=== PATIENT | female | born 1935 | race Caucasian/White ===

== ENCOUNTER 2020-03-25 16:19 | Inpatient (IN) | payer MEDICARE ==
[2020-03-25] MEDS ORDERED: Metoclopramide 10 MG/2 ML SDV IVPUSH ONE (16:32)
[2020-03-25] MEDS ORDERED: Sodium Chloride 0.9% 1,000 ML IV SCH (16:45)
[2020-03-25] MEDS ORDERED: Metoclopramide 10 MG/2 ML SDV ONE (16:55)
[2020-03-25] MEDS: Sodium Chloride 0.9% 10 ML Syringe FLUSH PRN (16:57)
[2020-03-25] MEDS ORDERED: HYDROmorphone 0.5 MG/0.5 ML Syringe IVPUSH ONE ×2 (17:08→21:14)
--- NOTE | 2020-03-25 17:26 | EDM.PDOC ---
ED HPI GENERAL MEDICAL PROBLEM - General Chief Complaint: Gastrointestinal Problem Stated Complaint: [facility] Time Seen by Provider: 03/25/20 16:27 Source of Information: Reports: Patient, EMS History Limitations: Reports: No Limitations - History of Present Illness INITIAL COMMENTS - FREE TEXT/NARRATIVE: The patient presents by [facility] for nausea, vomiting and upper abdominal pain. This started just prior to waking up. She also has a slight headache. She recently had a stroke that left her with weakness to the left arm and leg. She has no fever, chills, cough, congestion, runny nose, chest pain, shortness of breath, dysuria or diarrhea. Onset: Sudden Duration: Minutes: Location: Reports: Abdomen Quality: Reports: Sharp Severity: Moderate Improves with: Reports: None Worsens with: Reports: None Associated Symptoms: Reports: Headaches, Nausea/Vomiting. Denies: Chest Pain, Cough, Fever/Chills, Shortness of Breath Abdomen Pain Score (Numeric/FACES): 6 - Related Data Allergies Allergy/AdvReac Type Severity Reaction Status Date / Time No Known Allergies Allergy Verified 03/25/20 16:54 Home Meds: Home Meds Brimonidine Tartrate [Brimonidine Tartrate 0.2% Ophth Soln] 1 drop EYEBOTH DAILY 03/25/20 [History] Clopidogrel [Plavix] 75 mg PO DAILY 03/25/20 [History] Dorzolamide HCl/Pf [Dorzolamide 2% Eye Drop] 1 drop EYEBOTH BID 03/25/20 [History] Latanoprost/Pf [Latanoprost 0.005% Eye Drop] 1 drop EYEBOTH DAILY 03/25/20 [History] Lidocaine 5% [Lidoderm 5%] 1 patch TOP DAILY 03/25/20 [History] Ondansetron [Zofran ODT] 4 mg PO QID PRN 03/25/20 [History] QUEtiapine [SEROquel] 100 mg PO BID 03/25/20 [History] atorvaSTATin [Lipitor] 40 mg PO BEDTIME 03/25/20 [History] Past Medical History Neurological History: Reports: CVA Psychiatric History: Reports: None - Infectious Disease History Infectious Disease History: Reports: Novel Coronavirus - Past Surgical History HEENT Surgical History: Reports: Cataract Surgery Social & Family History - Tobacco Use Tobacco Use Status *Q: Former Tobacco User Used Tobacco, but Quit: Yes Month/Year Tobacco Last Used: 30 ED ROS GENERAL - Review of Systems Review Of Systems: See Below Constitutional: Reports: No Symptoms HEENT: Reports: No Symptoms Respiratory: Reports: No Symptoms Cardiovascular: Reports: No Symptoms Endocrine: Reports: No Symptoms GI/Abdominal: Reports: Abdominal Pain, Nausea, Vomiting. Denies: Diarrhea : Reports: No Symptoms Musculoskeletal: Reports: No Symptoms Skin: Reports: No Symptoms Neurological: Reports: Headache, Weakness (left side) ED EXAM, GI/ABD - Physical Exam Exam: See Below Exam Limited By: No Limitations General Appearance: Alert, No Apparent Distress Ears: Normal External Exam Nose: Normal Inspection Head: Atraumatic, Normocephalic Neck: Normal Inspection Respiratory/Chest: No Respiratory Distress, Lungs Clear, Normal Breath Sounds Cardiovascular: Regular Rate, Rhythm, No Edema, No Murmur GI/Abdominal Exam: Soft, No Organomegaly, No Mass, Tender (Moderate tenderness to the upper abdomen) Back Exam: Normal Inspection Extremities: Normal Inspection #1 Interpretation EKG Date: 03/25/20 Time: 16:38 Rhythm: Other (sinus tachycardia) Rate (Beats/Min): 102 [place]: LAD-Left [place] Deviation P-Wave: Present QRS: Normal ST-T: Normal QT: Normal EKG Interpretation Comments: PVC Course - Vital Signs Last Recorded V/S: Last Vital Signs Temp 97.8 F 03/25/20 16:28 Pulse 114 H 03/25/20 16:28 Resp 16 03/25/20 16:28 BP 137/82 03/25/20 16:28 Pulse Ox 95 03/25/20 16:28 - Orders/Labs/Meds Orders: Active Orders 24 hr Category Date Time Status Cardiac Monitoring [RC] . DIRECTED Care 03/25/20 16:32 Active EKG Documentation Completion [RC] STAT Care 03/25/20 16:33 Active Gastrointestinal Tube Mgmt [RC] ASDIRECTED Care 03/25/20 18:26 Active Oxygen Therapy [RC] PRN Care 03/25/20 16:32 Active Peripheral IV Care [RC] . DIRECTED Care 03/25/20 16:33 Active Abdomen 1V Upright [CR] Stat Exams 03/25/20 18:26 Ordered Abdomen Pelvis w Cont [CT] Stat Exams 03/25/20 16:34 Taken Chest 1V Frontal [CR] Stat Exams 03/25/20 16:33 Taken Chest 1V Frontal [CR] Stat Exams 03/25/20 18:26 Ordered Head wo Cont [CT] Stat Exams 03/25/20 16:34 Taken CULTURE URINE [RM] Stat Lab 03/25/20 17:00 Received Sodium Chloride 0.9% [Normal Saline] 1,000 ml Med 03/25/20 16:45 Active IV ASDIRECTED Sodium Chloride 0.9% [Saline Flush] Med 03/25/20 16:32 Active 10 ml FLUSH ASDIRECTED PRN Sodium Chloride 0.9% [Saline Flush] Med 03/25/20 18:15 Active 10 ml FLUSH BOLUS ED Antiemetic Medication Reflex [OM.PC] Stat Oth 03/25/20 16:33 Ordered NG [Nasogastric Orogastric Tube Insertion] [OM.PC] Oth 03/25/20 18:26 Ordered Routine Peripheral IV Insertion Adult [OM.PC] Stat Oth 03/25/20 16:32 Ordered Medication Orders Sodium Chloride (Normal Saline) 1,000 mls @ 125 mls/hr IV ASDIRECTED [facility] Last Admin: 03/25/20 16:57 Dose: 125 mls/hr Documented by: BHASKAR Sodium Chloride (Saline Flush) 10 ml FLUSH ASDIRECTED PRN PRN Reason: Keep Vein Open Last Admin: 03/25/20 16:57 Dose: 10 ml Documented by: BHASKAR Sodium Chloride (Saline Flush) 10 ml FLUSH BOLUS [facility] Last Admin: 03/25/20 18:09 Dose: 10 ml Documented by: SHRADDHA Labs: Laboratory Tests 03/25/20 03/25/20 03/25/20 Range/Units 16:30 16:30 17:02 WBC 18.47 H (3.98-10.04) K/mm3 RBC 4.52 (3.98-5.22) M/mm3 Hgb 13.1 (11.2-15.7) gm/dl Hct 41.6 (34.1-44.9) % MCV 92.0 (79.4-94.8) fl MCH 29.0 (25.6-32.2) pg MCHC 31.5 L (32.2-35.5) g/dl RDW Std Deviation 46.2 (36.4-46.3) fL Plt Count 320 (182-369) K/mm3 MPV 10.1 (9.4-12.3) fl Neut % (Auto) 87.6 H (34.0-71.1) % Lymph % (Auto) 7.2 L (19.3-51.7) % [place] % (Auto) 4.2 L (4.7-12.5) % Eos % (Auto) 0.7 (0.7-5.8) Baso % (Auto) 0.1 (0.1-1.2) % Neut # (Auto) 16.17 H (1.56-6.13) K/mm3 Lymph # (Auto) 1.33 (1.18-3.74) K/mm3 [place] # (Auto) 0.78 H (0.24-0.36) K/mm3 Eos # (Auto) 0.13 (0.04-0.36) K/mm3 Baso # (Auto) 0.02 (0.01-0.08) K/mm3 Manual Slide Review Abnormal smear Sodium 141 (136-145) mEq/L Potassium 3.9 (3.5-5.1) mEq/L Chloride 106 (98-107) mEq/L Carbon Dioxide 24 (21-32) mEq/L Anion Gap 14.9 (5-15) BUN 19 H (7-18) mg/dL Creatinine 0.8 (0.55-1.02) mg/dL Est Cr Clr Drug Dosing 46.59 mL/min Estimated GFR (MDRD) > 60 (>60) mL/min BUN/Creatinine Ratio 23.8 H (14-18) Glucose 151 H (83-115) mg/dL Calcium 9.6 (8.5-10.1) mg/dL Total Bilirubin 0.4 (0.2-1.0) mg/dL AST 21 (15-37) U/L ALT 23 (14-59) U/L Alkaline Phosphatase 95 (46-116) U/L Troponin I < 0.017 (0.00-0.056) ng/mL C-Reactive Protein 0.5 (<1.0) mg/dL Total Protein 6.9 (6.4-8.2) g/dl Albumin 3.3 L (3.4-5.0) g/dl Globulin 3.6 gm/dL Albumin/Globulin Ratio 0.9 L (1-2) Urine Color Dark yellow (Yellow) Urine Appearance Clear (Clear) Urine pH 6.5 (5.0-8.0) Ur Specific [place] 1.025 (1.005-1.030) Urine Protein Trace H (Negative) Urine Glucose (UA) Negative (Negative) Urine Ketones Trace H (Negative) Urine Occult Blood Negative (Negative) Urine Nitrite Positive H (Negative) Urine Bilirubin 1+ H (Negative) Urine Urobilinogen 1.0 (0.2-1.0) Ur Leukocyte Esterase Negative (Negative) Urine RBC 0-5 (0-5) /hpf Urine WBC 10-20 H (0-5) /hpf Ur Squamous Epith Cells 0-5 (0-5) /hpf Urine Bacteria Moderate H (FEW) /hpf Urine Mucus Few (FEW) /hpf SARS-CoV-2 RNA (ANGEL) (NEGATIVE) 03/25/20 Range/Units 17:19 WBC (3.98-10.04) K/mm3 RBC (3.98-5.22) M/mm3 Hgb (11.2-15.7) gm/dl Hct (34.1-44.9) % MCV (79.4-94.8) fl MCH (25.6-32.2) pg MCHC (32.2-35.5) g/dl RDW Std Deviation (36.4-46.3) fL Plt Count (182-369) K/mm3 MPV (9.4-12.3) fl Neut % (Auto) (34.0-71.1) % Lymph % (Auto) (19.3-51.7) % [place] % (Auto) (4.7-12.5) % Eos % (Auto) (0.7-5.8) Baso % (Auto) (0.1-1.2) % Neut # (Auto) (1.56-6.13) K/mm3 Lymph # (Auto) (1.18-3.74) K/mm3 [place] # (Auto) (0.24-0.36) K/mm3 Eos # (Auto) (0.04-0.36) K/mm3 Baso # (Auto) (0.01-0.08) K/mm3 Manual Slide Review Sodium (136-145) mEq/L Potassium (3.5-5.1) mEq/L Chloride (98-107) mEq/L Carbon Dioxide (21-32) mEq/L Anion Gap (5-15) BUN (7-18) mg/dL Creatinine (0.55-1.02) mg/dL Est Cr Clr Drug Dosing mL/min Estimated GFR (MDRD) (>60) mL/min BUN/Creatinine Ratio (14-18) Glucose (83-115) mg/dL Calcium (8.5-10.1) mg/dL Total Bilirubin (0.2-1.0) mg/dL AST (15-37) U/L ALT (14-59) U/L Alkaline Phosphatase (46-116) U/L Troponin I (0.00-0.056) ng/mL C-Reactive Protein (<1.0) mg/dL Total Protein (6.4-8.2) g/dl Albumin (3.4-5.0) g/dl Globulin gm/dL Albumin/Globulin Ratio (1-2) Urine Color (Yellow) Urine Appearance (Clear) Urine pH (5.0-8.0) Ur Specific [place] (1.005-1.030) Urine Protein (Negative) Urine Glucose (UA) (Negative) Urine Ketones (Negative) Urine Occult Blood (Negative) Urine Nitrite (Negative) Urine Bilirubin (Negative) Urine Urobilinogen (0.2-1.0) Ur Leukocyte Esterase (Negative) Urine RBC (0-5) /hpf Urine WBC (0-5) /hpf Ur Squamous Epith Cells (0-5) /hpf Urine Bacteria (FEW) /hpf Urine Mucus (FEW) /hpf SARS-CoV-2 RNA (ANGEL) Negative (NEGATIVE) Meds: Medications Generic Name Dose Route Start Last Admin Trade Name Freq PRN Reason Stop Dose Admin Sodium Chloride 1,000 mls @ 125 mls/hr 03/25/20 16:45 03/25/20 16:57 Normal Saline IV 125 mls/hr ASDIRECTED СЕРГЕЙ Administration Sodium Chloride 10 ml 03/25/20 16:32 03/25/20 16:57 Saline Flush FLUSH 10 ml ASDIRECTED PRN Administration Keep Vein Open Sodium Chloride 10 ml 03/25/20 18:15 03/25/20 18:09 Saline Flush FLUSH 10 ml BOLUS СЕРГЕЙ Administration Discontinued Medications Generic Name Dose Route Start Last Admin Trade Name New PRN Reason Stop Dose Admin Hydromorphone HCl 0.5 mg 03/25/20 17:08 03/25/20 17:14 Dilaudid IVPUSH 03/25/20 17:09 0.5 mg ONETIME ONE Administration Ceftriaxone Sodium 1 gm/ 100 mls @ 200 mls/hr 03/25/20 17:50 03/25/20 18:12 Sodium Chloride IV 03/25/20 18:19 200 mls/hr ONETIME ONE Administration Iopamidol 100 ml 03/25/20 18:07 03/25/20 18:08 Isovue-300 (61%) IVPUSH 03/25/20 18:08 100 ml ONETIME ONE Administration Lorazepam 0.5 mg 03/25/20 18:44 03/25/20 18:51 Ativan IVPUSH 03/25/20 18:45 0.5 mg ONETIME ONE Administration Metoclopramide HCl 10 mg 03/25/20 16:32 03/25/20 16:57 Reglan IVPUSH 03/25/20 16:33 10 mg ONETIME ONE Administration Metoclopramide HCl Confirm 03/25/20 16:55 03/25/20 16:57 Reglan Administered 03/25/20 16:56 Not Given Dose 10 mg .ROUTE .STK-MED ONE Ondansetron HCl 4 mg 03/25/20 17:39 03/25/20 18:11 Zofran IVPUSH 03/25/20 17:40 4 mg ONETIME ONE Administration - Re-Assessments/Exams Free Text/Narrative Re-Assessment/Exam: 03/25/20 17:26 I ordered an IV NS at 125mL/hr, reglan 10mg IV, dilaudid 0.5mg IV, EKG, CT of her head, CT of her abdomen and pelvis, UA and labs. Her EKG shows a sinus tachycardia with no acute changes. 03/25/20 18:27 Her WBC was elevated at 18.47. Her CMP looks good. Her UA shows a UTI. I have ordered a urine culture and rocephin 1 gram IV. I am waiting for the CT scan results. 03/25/20 18:[address] scan of her head shows nothing acute. 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 03/25/20 18:49 She was vomiting again so I ordered zofran 4mg IV. The CT looked like a bowel obstruction to me and with her vomiting I ordered an NG tube. Her CT came back and showing mild bowel wall thickening in the transverse colon with mild pericolonic inflammatory changes may represent colitis in the appropriate setting. 03/25/20 18:59 She does not have a bowel obstruction. I feel she needs to be admitted. I called Dr Howell and he agreed to the admission. Departure - Departure Time of Disposition: 19:00 Disposition: Admitted As Inpatient 68 Condition: Fair Clinical Impression: Colitis UTI (urinary tract infection) Qualifiers: Urinary tract infection type: site unspecified Hematuria presence: without hematuria Qualified Code(s): N39.0 - Urinary tract infection, site not specified Nausea & vomiting Qualifiers: Vomiting type: unspecified Vomiting Intractability: intractable Qualified Code(s): R11.2 - Nausea with vomiting, unspecified - Discharge Information Referrals: PCP,None [Primary Care Provider] - Forms: ED Department Discharge Sepsis Event Note (ED) - Evaluation Sepsis Screening Result: No Definite Risk - Focused Exam Vital Signs: Vital Signs Temp Pulse Resp BP Pulse Ox 03/25/20 16:28 97.8 F 114 H 16 137/82 95 - My Orders Last 24 Hours: My Active Orders 03/25/20 16:32 Cardiac Monitoring [RC] . DIRECTED Oxygen Therapy [RC] PRN Sodium Chloride 0.9% [Saline Flush] 10 ml FLUSH ASDIRECTED PRN Peripheral IV Insertion Adult [OM.PC] Stat 03/25/20 16:33 EKG Documentation Completion [RC] STAT Peripheral IV Care [RC] . DIRECTED Chest 1V Frontal [CR] Stat ED Antiemetic Medication Reflex [OM.PC] Stat 03/25/20 16:34 Abdomen Pelvis w Cont [CT] Stat Head wo Cont [CT] Stat 03/25/20 16:45 Sodium Chloride 0.9% [Normal Saline] 1,000 ml IV ASDIRECTED 03/25/20 17:00 CULTURE URINE [RM] Stat 03/25/20 18:15 Sodium Chloride 0.9% [Saline Flush] 10 ml FLUSH BOLUS 03/25/20 18:26 Gastrointestinal Tube Mgmt [RC] ASDIRECTED Abdomen 1V Upright [CR] Stat Chest 1V Frontal [CR] Stat NG [Nasogastric Orogastric Tube Insertion] [OM.PC] Routine - Assessment/Plan Last 24 Hours: My Active Orders 03/25/20 16:32 Cardiac Monitoring [RC] . DIRECTED Oxygen Therapy [RC] PRN Sodium Chloride 0.9% [Saline Flush] 10 ml FLUSH ASDIRECTED PRN Peripheral IV Insertion Adult [OM.PC] Stat 03/25/20 16:33 EKG Documentation Completion [RC] STAT Peripheral IV Care [RC] . DIRECTED Chest 1V Frontal [CR] Stat ED Antiemetic Medication Reflex [OM.PC] Stat 03/25/20 16:34 Abdomen Pelvis w Cont [CT] Stat Head wo Cont [CT] Stat 03/25/20 16:45 Sodium Chloride 0.9% [Normal Saline] 1,000 ml IV ASDIRECTED 03/25/20 17:00 CULTURE URINE [RM] Stat 03/25/20 18:15 Sodium Chloride 0.9% [Saline Flush] 10 ml FLUSH BOLUS 03/25/20 18:26 Gastrointestinal Tube Mgmt [RC] ASDIRECTED Abdomen 1V Upright [CR] Stat Chest 1V Frontal [CR] Stat NG [Nasogastric Orogastric Tube Insertion] [OM.PC] Routine
[2020-03-25] MEDS ORDERED: Ondansetron 4 MG/2 ML SDV IVPUSH ONE (17:39)
[2020-03-25] MEDS ORDERED: cefTRIAXone 1 GM in Sodium Chloride 0.9% 100 ML IV ONE (17:50)
[2020-03-25] MEDS ORDERED: Iopamidol 612 MG/ML 100 ML Bottle IVPUSH ONE (18:07)
[2020-03-25] MEDS ORDERED: Sodium Chloride 0.9% 10 ML Syringe FLUSH SCH (18:15)
[2020-03-25] MEDS ORDERED: LORazepam 2 MG/ML SDV IVPUSH ONE (18:44)
[2020-03-25] MEDS ORDERED: Acetaminophen 650 MG Supp RECTAL PRN (22:19)
[2020-03-25] MEDS ORDERED: Ondansetron 4 MG/2 ML SDV IV PRN (22:19)
[2020-03-25] MEDS ORDERED: Acetaminophen 325 MG Tab PO PRN (22:19)
[2020-03-25] MEDS: QUEtiapine 100 MG Tab PO SCH (22:59)
[2020-03-25] MEDS: metroNIDAZOLE/Normal Saline 500 MG in Premix Bag 1 BAG IV SCH (23:14)
[2020-03-26] MEDS: HYDROmorphone 0.5 MG/0.5 ML Syringe IVPUSH PRN ×3 (00:02→07:51)
[2020-03-26] MEDS ORDERED: Sodium Chloride 0.9% 1,000 ML IV SCH ×2 (00:45→07:45)
[2020-03-26] MEDS: metroNIDAZOLE/Normal Saline 500 MG in Premix Bag 1 BAG IV SCH (06:05)
--- NOTE | 2020-03-26 07:19 | PCM.HP.2 ---
H&P History of Present Illness - General Date of Service: 03/26/20 Admit Problem/Dx: Admission Diagnosis/Problem Admission Diagnosis/Problem UTI, Urinary tract infectious disease Source of Information: Patient, Old Records, Provider, RN, RN Notes Reviewed History Limitations: Reports: No Limitations - History of Present Illness Initial Comments - Free Text/Narative: This is an 84-year-old female who presents to ED on 03/25/2020 via [facility] with nausea, vomiting, and upper abdominal pain which started earlier in the day. She also reports a slight headache. 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 She denies any fever, chills, cough, c ongestion, runny nose, chest pain, shortness of breath, dysuria, or diarrhea. The ED temp was 97.8 Fahrenheit. Pulse 114. Respirations 16. Blood pressure 137/82. Pulse ox 95%. Twelve-lead EKG is obtained showing sinus tachycardia at 102 bpm with left axis deviation. Q waves are noted in III and aVF. There is a PVC with. No prior EKG available for comparison. No acute signs of ischemia. Labs are obtained with a WBC of 18.47. Hemoglobin 13.1. Hematocrit 41.6. Platelets are 320,000. Neutrophils are elevated at 16.17. Sodium 141. Potassium 3.9. Chloride 106. Carbon oxide 24. Anion gap 14.9. BUN is 19. Creatinine 0.8. GFR is greater than 60. Glucose 151. Calcium 9.6. Bilirubin 0.4. AST is 21, ALT 23, alkaline phosphatase 95. Troponin less than 0.017. CRP 0.5. Protein 6.9. Albumin 3.3. UA is obtained and is noted to be dark yellow in color with trace protein, trace ketones, positive nitrite, 1+ bilirubin, 10-20 WBCs, moderate bacteria, and few urine mucus. SARS-CoV-2 RNA is negative. She started on 125 mils of NS. She is given Rocephin and Flagyl. She is also given Dilaudid for pain. She is given Reglan and Zofran for nausea. Urine culture is ordered. Initial ER provider read of abdominal CT is concerning for small bowel obstruction so NG tube is placed. Chest x-ray is obtained showing NG tube with tip in the stomach. Abdominal x-ray is obtained showing multiple loops of small bowel which may represent obstruction or ileus. CT of the abdomen and pelvis is obtained showing mild bowel wall thickening in the transverse colon with mild pericolonic inflammatory change which may represent colitis in the appropriate setting. Distal colon does show some constipation. Head CT is obtained showing nothing acute. After the CT scan NG tube reportedly pulled as it is felt that she does not have a bowel obstruction. She is subsequently admitted to the medical floor for treatment of her UTI, nausea, vomiting, and abdominal pain. She carries a history of CVA with residual left-sided weakness. She is a full code. She is not from the area and recently moved up here with her daughter. She does not have a primary care provider locally. Abdomen Pain Score (Numeric/FACES): 6 - Related Data Allergies/Adverse Reactions: Allergies Allergy/AdvReac Type Severity Reaction Status Date / Time No Known Allergies Allergy Verified 03/25/20 16:54 Home Medications: Home Meds Brimonidine Tartrate [Brimonidine Tartrate 0.2% Ophth Soln] 1 drop EYEBOTH DAILY 03/25/20 [History] Clopidogrel [Plavix] 75 mg PO DAILY 03/25/20 [History] Dorzolamide HCl/Pf [Dorzolamide 2% Eye Drop] 1 drop EYEBOTH BID 03/25/20 [History] Latanoprost/Pf [Latanoprost 0.005% Eye Drop] 1 drop EYEBOTH DAILY 03/25/20 [History] Lidocaine 5% [Lidoderm 5%] 1 patch TOP DAILY 03/25/20 [History] Ondansetron [Zofran ODT] 4 mg PO QID PRN 03/25/20 [History] QUEtiapine [SEROquel] 100 mg PO BID 03/25/20 [History] atorvaSTATin [Lipitor] 40 mg PO BEDTIME 03/25/20 [History] Past Medical History HEENT History: Reports: Cataract Neurological History: Reports: CVA Psychiatric History: Reports: None - Infectious Disease History Infectious Disease History: Reports: Novel Coronavirus - Past Surgical History HEENT Surgical History: Reports: Cataract Surgery Social & Family History - Tobacco Use Tobacco Use Status *Q: Former Tobacco User Used Tobacco, but Quit: Yes Month/Year Tobacco Last Used: 30 - Recreational Drug Use Recreational Drug Use: No H&P Review of Systems - Review of Systems: Review Of Systems: Unable To Obtain Reason Not Obtained: Patient in extreme pain and not responding to questions. Free Text/Narrative: Per nursing report patient has had worsening abdominal pain throughout the night and her abdomen has become more distended. Patient reportedly had one episode of emesis overnight and this occurred when they were repositioning her. She has had no diarrhea. Patient in obvious distress when examined today. Genitourinary: Denies: Pain Exam - Exam Exam: See Below - Vital Signs Vital Signs: Last Vital Signs Temp 97.9 F 03/26/20 03:54 Pulse 106 H 03/26/20 06:59 Resp 20 03/26/20 03:54 BP 116/84 03/26/20 04:47 Pulse Ox 92 L 03/26/20 06:59 Weight: 135 lb 1.6 oz - Exam Quality Assessment: No: Supplemental Oxygen, DVT Prophylaxis (Lovenox and Plavix held this morning) General: Alert, Severe Distress. No: Cooperative HEENT: Conjunctiva Clear, Mucosa Moist & [place] Neck: Supple, Trachea Midline Lungs: Clear to Auscultation, Normal Respiratory Effort Cardiovascular: Regular Rate, Regular Rhythm GI/Abdominal Exam: Normal Bowel Sounds, Distended, Guarding, Tender (Generalized abdominal tenderness. Most severe in upper quadrants.), Other (Patient in severe pain and writhing on bed. Difficult to obtain thorough abdominal exam. No signs of any bruising.) (Female) Exam: Deferred Rectal (Female) Exam: Deferred Extremities: Normal Inspection, No Pedal Edema, Other (Left upper and lower extremity weakness which is chronic per report) Skin: Warm, Dry, Intact - Patient Data Lab Results Last 24 hrs: Laboratory Results - last 24 hr 03/25/20 03/25/20 03/25/20 Range/Units 16:30 16:30 17:02 WBC 18.47 H (3.98-10.04) K/mm3 RBC 4.52 (3.98-5.22) M/mm3 Hgb 13.1 (11.2-15.7) gm/dl Hct 41.6 (34.1-44.9) % MCV 92.0 (79.4-94.8) fl MCH 29.0 (25.6-32.2) pg MCHC 31.5 L (32.2-35.5) g/dl RDW Std Deviation 46.2 (36.4-46.3) fL Plt Count 320 (182-369) K/mm3 MPV 10.1 (9.4-12.3) fl Neut % (Auto) 87.6 H (34.0-71.1) % Lymph % (Auto) 7.2 L (19.3-51.7) % [place] % (Auto) 4.2 L (4.7-12.5) % Eos % (Auto) 0.7 (0.7-5.8) Baso % (Auto) 0.1 (0.1-1.2) % Neut # (Auto) 16.17 H (1.56-6.13) K/mm3 Lymph # (Auto) 1.33 (1.18-3.74) K/mm3 [place] # (Auto) 0.78 H (0.24-0.36) K/mm3 Eos # (Auto) 0.13 (0.04-0.36) K/mm3 Baso # (Auto) 0.02 (0.01-0.08) K/mm3 Manual Slide Review Abnormal smear Sodium 141 (136-145) mEq/L Potassium 3.9 (3.5-5.1) mEq/L Chloride 106 (98-107) mEq/L Carbon Dioxide 24 (21-32) mEq/L Anion Gap 14.9 (5-15) BUN 19 H (7-18) mg/dL Creatinine 0.8 (0.55-1.02) mg/dL Est Cr Clr Drug Dosing 46.59 mL/min Estimated GFR (MDRD) > 60 (>60) mL/min BUN/Creatinine Ratio 23.8 H (14-18) Glucose 151 H (83-115) mg/dL Calcium 9.6 (8.5-10.1) mg/dL Phosphorus (2.6-4.7) mg/dL Magnesium (1.8-2.4) mg/dl Total Bilirubin 0.4 (0.2-1.0) mg/dL AST 21 (15-37) U/L ALT 23 (14-59) U/L Alkaline Phosphatase 95 (46-116) U/L Troponin I < 0.017 (0.00-0.056) ng/mL C-Reactive Protein 0.5 (<1.0) mg/dL Total Protein 6.9 (6.4-8.2) g/dl Albumin 3.3 L (3.4-5.0) g/dl Globulin 3.6 gm/dL Albumin/Globulin Ratio 0.9 L (1-2) Urine Color Dark yellow (Yellow) Urine Appearance Clear (Clear) Urine pH 6.5 (5.0-8.0) Ur Specific Rico 1.025 (1.005-1.030) Urine Protein Trace H (Negative) Urine Glucose (UA) Negative (Negative) Urine Ketones Trace H (Negative) Urine Occult Blood Negative (Negative) Urine Nitrite Positive H (Negative) Urine Bilirubin 1+ H (Negative) Urine Urobilinogen 1.0 (0.2-1.0) Ur Leukocyte Esterase Negative (Negative) Urine RBC 0-5 (0-5) /hpf Urine WBC 10-20 H (0-5) /hpf Ur Squamous Epith Cells 0-5 (0-5) /hpf Urine Bacteria Moderate H (FEW) /hpf Urine Mucus Few (FEW) /hpf SARS-CoV-2 RNA (ANGEL) (NEGATIVE) 03/25/20 03/26/20 03/26/20 Range/Units 17:19 05:08 05:08 WBC 21.04 H (3.98-10.04) K/mm3 RBC 5.44 H (3.98-5.22) M/mm3 Hgb 15.5 D (11.2-15.7) gm/dl Hct 49.3 H (34.1-44.9) % MCV 90.6 (79.4-94.8) fl MCH 28.5 (25.6-32.2) pg MCHC 31.4 L (32.2-35.5) g/dl RDW Std Deviation 47.2 H (36.4-46.3) fL Plt Count 405 H D (182-369) K/mm3 MPV 10.5 (9.4-12.3) fl Neut % (Auto) 85.2 H (34.0-71.1) % Lymph % (Auto) 5.2 L (19.3-51.7) % Bull[place] % (Auto) 9.2 (4.7-12.5) % Eos % (Auto) 0 L (0.7-5.8) Baso % (Auto) 0.1 (0.1-1.2) % Neut # (Auto) 17.93 H (1.56-6.13) K/mm3 Lymph # (Auto) 1.09 L (1.18-3.74) K/mm3 [place] # (Auto) 1.93 H (0.24-0.36) K/mm3 Eos # (Auto) 0.01 L (0.04-0.36) K/mm3 Baso # (Auto) 0.02 (0.01-0.08) K/mm3 Manual Slide Review Abnormal smear Sodium 141 (136-145) mEq/L Potassium 4.3 (3.5-5.1) mEq/L Chloride 106 (98-107) mEq/L Carbon Dioxide 15 L (21-32) mEq/L Anion Gap 24.3 H (5-15) BUN 38 H (7-18) mg/dL Creatinine 1.8 H (0.55-1.02) mg/dL Est Cr Clr Drug Dosing 20.81 mL/min Estimated GFR (MDRD) 27 (>60) mL/min BUN/Creatinine Ratio 21.1 H (14-18) Glucose 232 H (83-115) mg/dL Calcium 10.1 (8.5-10.1) mg/dL Phosphorus 7.0 H (2.6-4.7) mg/dL Magnesium 3.3 H (1.8-2.4) mg/dl Total Bilirubin 0.6 (0.2-1.0) mg/dL AST 32 (15-37) U/L ALT 40 (14-59) U/L Alkaline Phosphatase 187 H (46-116) U/L Troponin I (0.00-0.056) ng/mL C-Reactive Protein 9.3 H* (<1.0) mg/dL Total Protein 6.9 (6.4-8.2) g/dl Albumin 3.0 L (3.4-5.0) g/dl Globulin 3.9 gm/dL Albumin/Globulin Ratio 0.8 L (1-2) Urine Color (Yellow) Urine Appearance (Clear) Urine pH (5.0-8.0) Ur Specific Rico (1.005-1.030) Urine Protein (Negative) Urine Glucose (UA) (Negative) Urine Ketones (Negative) Urine Occult Blood (Negative) Urine Nitrite (Negative) Urine Bilirubin (Negative) Urine Urobilinogen (0.2-1.0) Ur Leukocyte Esterase (Negative) Urine RBC (0-5) /hpf Urine WBC (0-5) /hpf Ur Squamous Epith Cells (0-5) /hpf Urine Bacteria (FEW) /hpf Urine Mucus (FEW) /hpf SARS-CoV-2 RNA (ANGEL) Negative (NEGATIVE) Result Diagrams: 03/26/20 05:08 03/26/20 05:08 Sepsis Event Note - Evaluation Sepsis Screening Result: Sepsis Risk Current Stage of Sepsis: Severe Sepsis Possible Source of Sepsis: GI Tract/Intra-abdominal - Focused Exam Sepsis Event Note Statement: Focused Sepsis Exam Completed Vital Signs: Vital Signs Temp Pulse Pulse Resp BP BP Pulse Ox 03/26/20 06:59 106 H 92 L 03/26/20 04:47 116/84 03/26/20 03:54 97.9 F 103 H 20 97/81 93 L 03/26/20 00:57 97.9 F 101 H 20 92/48 L 93 L 03/25/20 20:35 99.0 F 117 H 20 118/84 94 L 03/25/20 20:00 110 H 20 105/59 L 90 L Respiratory Effort Without Exertion: Other (see below) (Regular) Heart Sounds: Other (see below) (Regular) Capillary Refill, Detail: Less than/Equal to (</=) 2 Seconds Pulse Description: 3+ Bounding Peripheral Pulse Location: Radial Skin Exam (Focused Sepsis): Normal Turgor Date Exam was Performed: 03/26/20 Time Exam was Performed: 07:30 - Problem List (1) History of CVA (cerebrovascular accident) SNOMED Code(s): 476525403 ICD Code: Z86.73 - PRSNL HX OF TIA (TIA), AND CEREB INFRC W/O RESID DEFICITS Status: Chronic Priority: Medium Current Visit: Yes (2) Chronic anticoagulation SNOMED Code(s): 589170751 ICD Code: Z79.01 - HALFWAY (CURRENT) USE OF ANTICOAGULANTS Status: Chronic Priority: Medium Current Visit: Yes (3) Colitis SNOMED Code(s): 08113206 ICD Code: K52.9 - NONINFECTIVE GASTROENTERITIS AND COLITIS, UNSPECIFIED Status: Acute Priority: High Current Visit: Yes (4) Nausea & vomiting SNOMED Code(s): 77194304 ICD Code: R11.2 - NAUSEA WITH VOMITING, UNSPECIFIED Status: Acute Priority: High Current Visit: Yes Qualifiers: Vomiting type: unspecified Vomiting Intractability: non-intractable Qualified Code(s): R11.2 - Nausea with vomiting, unspecified (5) UTI (urinary tract infection) SNOMED Code(s): 93756020 ICD Code: N39.0 - URINARY TRACT INFECTION, SITE NOT SPECIFIED Status: Acute Priority: High Current Visit: Yes Qualifiers: Urinary tract infection type: site unspecified Hematuria presence: without hematuria Qualified Code(s): N39.0 - Urinary tract infection, site not specified Problem List Initiated/Reviewed/Updated: Yes Orders Last 24hrs: Active Orders 24 hr Category Date Time Status Patient Status [ADT] Routine ADT 03/25/20 19:04 Active Bladder Scan [RC] ASDIRECTED Care 03/26/20 02:06 Active Oxygen Therapy [RC] PRN Care 03/25/20 16:32 Active Up With Assistance [RC] BID Care 03/25/20 22:19 Active VTE/DVT Education [RC] DAILY Care 03/25/20 22:19 Active Vital Signs [RC] Q4H Care 03/25/20 22:19 Active PT Evaluation and Treatment [CONS] Routine Cons 03/25/20 22:19 Active Clear Liquid Diet [DIET] Diet 03/26/20 Breakfast Active Abdomen 1V Upright [CR] Stat Exams 03/25/20 18:26 Taken Abdomen Pelvis w Cont [CT] Stat Exams 03/25/20 16:34 Taken Chest 1V Frontal [CR] Stat Exams 03/25/20 16:33 Taken Chest 1V Frontal [CR] Stat Exams 03/25/20 18:26 Taken Head wo Cont [CT] Stat Exams 03/25/20 16:34 Taken CULTURE URINE [RM] Stat Lab 03/25/20 17:00 Received LACTIC ACID [CHEM] Stat Lab 03/26/20 06:50 Received Acetaminophen [TylenoL] Med 03/25/20 22:19 Active 650 mg PO Q4H PRN Acetaminophen [Tylenol] Med 03/25/20 22:19 Active 650 mg RECTAL Q4H PRN Clopidogrel [Plavix] Med 03/26/20 09:00 Active 75 mg PO DAILY Dorzolamide [Trusopt 2% Ophth Soln] Med 03/26/20 09:00 Active 0 ml EYEBOTH BID Enoxaparin [Lovenox] Med 03/26/20 09:00 Active 40 mg SUBCUT DAILY HYDROmorphone [Dilaudid] Med 03/25/20 22:19 Active 0.5 mg IVPUSH Q2H PRN Latanoprost [Xalatan 0.005% Ophth Soln] Med 03/26/20 09:00 Active 0 ml EYEBOTH DAILY Ondansetron [Zofran] Med 03/25/20 22:19 Active 4 mg IV Q4H PRN QUEtiapine [SEROqueL] Med 03/25/20 22:30 Active 100 mg PO BID Sodium Chloride 0.9% [Normal Saline] 1,000 ml Med 03/26/20 00:45 Active IV ASDIRECTED Sodium Chloride 0.9% [Saline Flush] Med 03/25/20 16:32 Active 10 ml FLUSH ASDIRECTED PRN Sodium Chloride 0.9% [Saline Flush] Med 03/25/20 18:15 Active 10 ml FLUSH BOLUS metroNIDAZOLE/Normal Saline [Flagyl 500 MG in NS 100 ML Med 03/25/20 23:00 Active ] 500 mg Premix Bag 1 bag IV Q8H Peripheral IV Insertion Adult [OM.PC] Stat Oth 03/25/20 16:32 Ordered Resuscitation Status Routine Resus Stat 03/25/20 22:19 Ordered Medication Orders Acetaminophen (Tylenol) 650 mg PO Q4H PRN PRN Reason: Pain (Mild 1-3)/fever Last Admin: 03/26/20 03:09 Dose: 650 mg Documented by: SHAD Acetaminophen (Tylenol) 650 mg RECTAL Q4H PRN PRN Reason: Pain (mild 1-3) Clopidogrel Bisulfate (Plavix) 75 mg PO DAILY СЕРГЕЙ Dorzolamide HCl (Trusopt 2% Ophth Soln) 0 ml EYEBOTH BID СЕРГЕЙ Enoxaparin Sodium (Lovenox) 40 mg SUBCUT DAILY СЕРГЕЙ Hydromorphone HCl (Dilaudid) 0.5 mg IVPUSH Q2H PRN PRN Reason: Pain (severe 7-10) Last Admin: 03/26/20 05:14 Dose: 0.5 mg Documented by: Admin: 03/26/20 00:02 Dose: 0.5 mg Documented by: SHAD Metronidazole 500 mg/ Premix 100 mls @ 100 mls/hr IV Q8H [facility] Last Admin: 03/26/20 06:05 Dose: 100 mls/hr Documented by: Infusion: 03/26/20 00:14 Dose: 100 mls/hr Documented by: Admin: 03/25/20 23:14 Dose: 100 mls/hr Documented by: SHAD Sodium Chloride (Normal Saline) 1,000 mls @ 75 mls/hr IV ASDIRECTED [facility] Last Admin: 03/26/20 02:45 Dose: 75 mls/hr Documented by: SHAD Latanoprost (Xalatan 0.005% Ophth Soln) 0 ml EYEBOTH DAILY [facility] Ondansetron HCl (Zofran) 4 mg IV Q4H PRN PRN Reason: Nausea/Vomiting Last Admin: 03/25/20 23:23 Dose: 4 mg Documented by: SHAD Quetiapine Fumarate (Seroquel) 100 mg PO BID [facility] Last Admin: 03/25/20 22:59 Dose: 100 mg Documented by: SHAD Sodium Chloride (Saline Flush) 10 ml FLUSH ASDIRECTED PRN PRN Reason: Keep Vein Open Last Admin: 03/25/20 16:57 Dose: 10 ml Documented by: BHASKAR Sodium Chloride (Saline Flush) 10 ml FLUSH BOLUS [facility] Last Admin: 03/25/20 18:09 Dose: 10 ml Documented by: SHRADDHA Assessment/Plan Comment:: Assessment day of admission - 03/26/2020 * 84 Y old female admitted overnight on 03/25/2020 with a UTI, abdominal pain, nausea and vomiting. * History of CVA with residual left upper and lower extremity weakness * Patient reportedly just moved to area to live with daughter and had been in the [facility]. * Reports symptom onset just prior to waking up on 03/25/2020. * Denies any fever, chills, cough, congestion, chest pain, shortness of breath, dysuria, diarrhea * Twelve-lead EKG in the ED shows sinus tachycardia at 102 bpm with left axis deviation. Q waves are noted in III and aVF. PVC noted. * Labs in ED: * WBC 18.47 * Hgb 13.1 * HCT 41.6 * Normocytic * Neutrophils elevated at 16.17 * Sodium 141 * Potassium 3.9 * Chloride 106 * Carbon dioxide 24 * Anion gap 14.9 * BUN 19 * Creatinine 0.8 * GFR greater than 60 * Glucose 151 * Bilirubin 0.4 * AST 21, ALT 23, alkaline phosphatase 95 * Troponin less than 0.017 * CRP 0.5 * Protein 6.9 * Albumin 3.3 * UA positive with trace protein, trace ketones, positive nitrite, 1+ bilirubin, 10-20 WBCs, moderate bacteria noted * SARS-CoV-2 RNA negative * Given Dilaudid for pain * Started on IV fluids -NS at 125 mils per hour * Started on 1 g Rocephin * Given Reglan and Zofran for nausea. * X-ray of chest shows NG tube with tip in stomach. Nothing acute. * X-ray of abdomen shows multiple loops of dilated bowel which may represent obstruction or ileus * CT scan of abdomen shows mild bowel wall thickening in the transverse colon with mild pericolonic inflammatory changes which may represent colitis in the appropriate clinical setting * CT scan of the head shows nothing acute. * NG tube is reportedly placed in the ED over concerns of SBO but removed shortly thereafter as CT scan does not demonstrate SBO * Admitted to the medical surgical floor for management of UTI, abdominal pain/colitis, nausea, and vomiting. Plan: UTI (urinary tract infection) * Continue daily Rocephin * IV fluids as indicated * Urine culture pending Colitis Nausea & vomiting * Clear liquid diet for now * Consider general surgery consultation if symptoms worsen - Dr. Cortes advertising operations coordinator * Antiemetics as ordered * IV fluids as ordered * Start flagyl 500mg Q8Hr * Pain medications as ordered History of CVA (cerebrovascular accident) Chronic anticoagulation * Continue home Plavix * PT/OT evaluation Code status: Full Code PCP: None Locally DVT Prophylaxis: Continue home plavix and start lovenox Social: [place] Disposition: Admit to medical surgical floor for treatment of UTI and colitis. Suspect length of stay 3 to 4 days total. Prognosis: Good - Mortality Measure Prognosis:: Good
[2020-03-26] MEDS: Sodium Chloride 0.9% 10 ML Syringe FLUSH PRN (07:55)
[2020-03-26] MEDS ORDERED: Latanoprost 0.005% Ophth Soln 2.5 ML Bottle EYEBOTH SCH (09:00)
[2020-03-26] MEDS ORDERED: Dorzolamide 2% Ophth Soln 10 ML Bottle EYEBOTH SCH (09:00)
[2020-03-26] MEDS ORDERED: Clopidogrel 75 MG Tab PO SCH (09:00)
[2020-03-26] MEDS ORDERED: Enoxaparin 30 MG/0.3 ML Syringe SUBCUT SCH (09:00)
--- NOTE | 2020-03-26 09:18 | PCM.DCSUM1 ---
Discharge Summary - Hospital Course HPI Initial Comments: This is an 84-year-old female who presents to ED on 03/25/2020 via [facility] with nausea, vomiting, and upper abdominal pain which started earlier in the day. She also reports a slight headache. 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 She denies any fever, chills, cough, congestion, runny nose, chest pain, shortness of breath, dysuria, or diarrhea. The ED temp was 97.8 Fahrenheit. Pulse 114. Respirations 16. Blood pressure 137/82. Pulse ox 95%. Twelve-lead EKG is obtained showing sinus tachycardia at 102 bpm with left axis deviation. Q waves are noted in III and aVF. There is a PVC with. No prior EKG available for comparison. No acute signs of ischemia. Labs are obtained with a WBC of 18.47. Hemoglobin 13.1. Hematocrit 41.6. Platelets are 320,000. Neutrophils are elevated at 16.17. Sodium 141. Pot assium 3.9. Chloride 106. Carbon oxide 24. Anion gap 14.9. BUN is 19. Creatinine 0.8. GFR is greater than 60. Glucose 151. Calcium 9.6. Bilirubin 0.4. AST is 21, ALT 23, alkaline phosphatase 95. Troponin less than 0.017. CRP 0.5. Protein 6.9. Albumin 3.3. UA is obtained and is noted to be dark yellow in color with trace protein, trace ketones, positive nitrite, 1+ bilirubin, 10-20 WBCs, moderate bacteria, and few urine mucus. SARS-CoV-2 RNA is negative. She started on 125 mils of NS. She is given Rocephin and Flagyl. She is also given Dilaudid for pain. She is given Reglan and Zofran for nausea. Urine culture is ordered. Initial ER provider read of abdominal CT is concerning for small bowel obstruction so NG tube is placed. Chest x-ray is obtained showing NG tube with tip in the stomach. Abdominal x-ray is obtained showing multiple loops of small bowel which may represent obstruction or ileus. CT of the abdomen and pelvis is obtained showing mild bowel wall thickening in the transverse colon with mild pericolonic inflammatory change which may represent colitis in the appropriate setting. Distal colon does show some constipation. Head CT is obtained showing nothing acute. After the CT scan NG tube reportedly pulled as it is felt that she does not have a bowel obstruction. She is subsequently admitted to the medical floor for treatment of her UTI, dora sea, vomiting, and abdominal pain. She carries a history of CVA with residual left-sided weakness. She is a full code. She is not from the area and recently moved up here with her daughter. She does not have a primary care provider locally. Diagnosis: Stroke: No - Discharge Data Discharge Date: 03/26/20 (Admit date: 03/25/2020) Discharge Disposition: DC/Tfer to Acute Hospital 02 Condition: Critical - Referral to Home Health Primary Care Physician: PCP None - Discharge Diagnosis/Problem(s) (1) History of CVA (cerebrovascular accident) SNOMED Code(s): 941460298 ICD Code: Z86.73 - PRSNL HX OF TIA (TIA), AND CEREB INFRC W/O RESID DEFICITS Status: Chronic Priority: Medium Current Visit: Yes (2) Chronic anticoagulation SNOMED Code(s): 763845161 ICD Code: Z79.01 - SNOWBLOWER MECH[employer]IC (CURRENT) USE OF ANTICOAGULANTS Status: Chronic Priority: Medium Current Visit: Yes (3) Colitis SNOMED Code(s): 31542423 ICD Code: K52.9 - NONINFECTIVE GASTROENTERITIS AND COLITIS, UNSPECIFIED Status: Acute Priority: High Current Visit: Yes (4) Nausea & vomiting SNOMED Code(s): 77036564 ICD Code: R11.2 - NAUSEA WITH VOMITING, UNSPECIFIED Status: Acute Priority: High Current Visit: Yes Qualifiers: Vomiting type: unspecified Vomiting Intractability: non-intractable Qualified Code(s): R11.2 - Nausea with vomiting, unspecified (5) UTI (urinary tract infection) SNOMED Code(s): 41891341 ICD Code: N39.0 - URINARY TRACT INFECTION, SITE NOT SPECIFIED Status: Acute Priority: High Current Visit: Yes Qualifiers: Urinary tract infection type: site unspecified Hematuria presence: without hematuria Qualified Code(s): N39.0 - Urinary tract infection, site not specified (6) Necrosis of intestine SNOMED Code(s): 90745323 ICD Code: K55.069 - ACUTE INFARCTION OF INTESTINE, PART AND EXTENT UNSPECIFIED Status: Suspected Priority: High Current Visit: Yes - Patient Summary/Data Consults: Consultations 03/25/20 22:19 PT Evaluation and Treatment [CONS] Routine Labs Pending at D/C: Urine cultures, Blood cultures Hospital Course: Patient was admitted overnight for treatment of UTI, colitis related abdominal pain, nausea and vomiting. Patient was seen in the ER abdominal pain was minimal and this is reportedly only worsened overnight. This morning when patient was evaluated she is noted to be writhing around in bed and will not answer questions. Abdomen is exquisitely tender, although appears more tender in upper quadrants. Per patient's daughter, who she lives with, patient is normally alert and orientated. Patient does have a history of CVA with residual left upper and lower extremity weakness. No prior known abdominal surgeries. Patient is on every 8 hour Flagyl and Rocephin currently. Labs this morning are obtained and show an elevated WBC of 21.04. Platelets have increased to 405. Absolute neutrophils of increased to 17.93. Carbon dioxide is 15. Anion gap is 24.3. BUN is 38. Creatinine is up to 1.8 with a GFR of 27. Glucose is 232. Lactic acid is 4.2. Phosphorus is 7.0. Magnesium is 3.3. Alkaline phosphatase is up to 187. CRP is 9.3. Albumin is down to 3.0. Patient is noted to be tachycardic with leukocytosis as noted. Acute renal failure and lactic acidosis with a lactate greater than 4 gives us criteria for a severe sepsis alert. Unfortunately blood cultures were not obtained in the emergency room and these are obtained this AM. Patient is on Rocephin and metronidazole. IV fluids of 1860 mL is ordered at 200 mils an hour after discussion with Dr. Howell. Patient had been receiving IV fluids overnight at 75 mils an hour. Patient normotensive. This is all very concerning for bowel necrosis. Dr. Cortes, general surgeon, is contacted who believes the patient is too sick for our facility and should be transferred to [place]. Dr. Pryor, general surgeon with [facility] in [place] is contacted and report given. After much discussion he graciously accepts patient for transfer to their facility. Plan will be for patient to go to the emergency room with subsequent likely emergent surgery on arrival. Patient will be transferred via helicopter given severity of symptoms and concern over worsening bowel necrosis. Contacted patients daughter Shilpa Clark at who agrees to plan for jeri abbasi. Communicated to her that her mother is very acutely sick and this could potentially be fatal. Transferred to [place] via helicopter. Of note: patient's last oral intake was day prior and nursing reports having difficulty with patient even taking water overnight. Approximately 50ml water intake overnight per charting. Medications this morning were withheld, this includes patient's Plavix and DVT prophylaxis Lovenox. Lovenox was not given in hospital at all. Patient was made n.p.o. this morning at 7 AM [place] time. - Patient Instructions Diet: NPO - Discharge Plan *PRESCRIPTION DRUG MONITORING PROGRAM REVIEWED*: No *COPY OF PRESCRIPTION DRUG MONITORING REPORT IN PATIENT [place]: No Home Medications: Home Meds Brimonidine Tartrate [Brimonidine Tartrate 0.2% Ophth Soln] 1 drop EYEBOTH DAILY 03/25/20 [History] Clopidogrel [Plavix] 75 mg PO DAILY 03/25/20 [History] Dorzolamide HCl/Pf [Dorzolamide 2% Eye Drop] 1 drop EYEBOTH BID 03/25/20 [History] Latanoprost/Pf [Latanoprost 0.005% Eye Drop] 1 drop EYEBOTH DAILY 03/25/20 [History] Lidocaine 5% [Lidoderm 5%] 1 patch TOP DAILY 03/25/20 [History] Ondansetron [Zofran ODT] 4 mg PO QID PRN 03/25/20 [History] QUEtiapine [SEROquel] 100 mg PO BID 03/25/20 [History] atorvaSTATin [Lipitor] 40 mg PO BEDTIME 03/25/20 [History] Oxygen Therapy Mode: Room Air Patient Handouts: Sepsis, Diagnosis, Adult Forms: ED Department Discharge Referrals: PCP,None [Primary Care Provider] - - Discharge Summary/Plan Comment DC Time >30 min.: Yes (90 minutes ) - General Info Date of Service: 03/26/20 Admission Dx/Problem (Free Text: Admission Diagnosis/Problem Admission Diagnosis/Problem UTI, Urinary tract infectious disease Subjective Update: Patient is doing very poorly this a.m. Per nursing this was worsening throughout the night. Patient reports severe abdominal pain but will not answer questions. Patient is writhing around in bed. Per nursing patient had 1 emesis overnight that occurred while repositioning patient. Otherwise no vomiting. No diarrhea. Abdomen per nursing appears more distended. - Patient Data Vitals - Most Recent: Last Vital Signs Temp 97.9 F 03/26/20 03:54 Pulse 106 H 03/26/20 06:59 Resp 20 03/26/20 03:54 BP 116/84 03/26/20 04:47 Pulse Ox 92 L 03/26/20 06:59 Weight - Most Recent: 135 lb 1.6 oz I&O - Last 24 hours: Intake & Output 03/25/20 03/26/20 03/26/20 22:59 06:59 14:59 Intake Total 1348 Output Total 100 Balance -100 1348 Lab Results - Last 24 hrs: Laboratory Results - last 24 hr 03/25/20 03/25/20 03/25/20 Range/Units 16:30 16:30 17:02 WBC 18.47 H (3.98-10.04) K/mm3 RBC 4.52 (3.98-5.22) M/mm3 Hgb 13.1 (11.2-15.7) gm/dl Hct 41.6 (34.1-44.9) % MCV 92.0 (79.4-94.8) fl MCH 29.0 (25.6-32.2) pg MCHC 31.5 L (32.2-35.5) g/dl RDW Std Deviation 46.2 (36.4-46.3) fL Plt Count 320 (182-369) K/mm3 MPV 10.1 (9.4-12.3) fl Neut % (Auto) 87.6 H (34.0-71.1) % Lymph % (Auto) 7.2 L (19.3-51.7) % Rush % (Auto) 4.2 L (4.7-12.5) % Eos % (Auto) 0.7 (0.7-5.8) Baso % (Auto) 0.1 (0.1-1.2) % Neut # (Auto) 16.17 H (1.56-6.13) K/mm3 Lymph # (Auto) 1.33 (1.18-3.74) K/mm3 Rush # (Auto) 0.78 H (0.24-0.36) K/mm3 Eos # (Auto) 0.13 (0.04-0.36) K/mm3 Baso # (Auto) 0.02 (0.01-0.08) K/mm3 Manual Slide Review Abnormal smear Sodium 141 (136-145) mEq/L Potassium 3.9 (3.5-5.1) mEq/L Chloride 106 (98-107) mEq/L Carbon Dioxide 24 (21-32) mEq/L Anion Gap 14.9 (5-15) BUN 19 H (7-18) mg/dL Creatinine 0.8 (0.55-1.02) mg/dL Est Cr Clr Drug Dosing 46.59 mL/min Estimated GFR (MDRD) > 60 (>60) mL/min BUN/Creatinine Ratio 23.8 H (14-18) Glucose 151 H (83-115) mg/dL Lactic Acid (0.4-2.0) mmol/L Calcium 9.6 (8.5-10.1) mg/dL Phosphorus (2.6-4.7) mg/dL Magnesium (1.8-2.4) mg/dl Total Bilirubin 0.4 (0.2-1.0) mg/dL AST 21 (15-37) U/L ALT 23 (14-59) U/L Alkaline Phosphatase 95 (46-116) U/L Troponin I < 0.017 (0.00-0.056) ng/mL C-Reactive Protein 0.5 (<1.0) mg/dL Total Protein 6.9 (6.4-8.2) g/dl Albumin 3.3 L (3.4-5.0) g/dl Globulin 3.6 gm/dL Albumin/Globulin Ratio 0.9 L (1-2) Urine Color Dark yellow (Yellow) Urine Appearance Clear (Clear) Urine pH 6.5 (5.0-8.0) Ur Specific [place] 1.025 (1.005-1.030) Urine Protein Trace H (Negative) Urine Glucose (UA) Negative (Negative) Urine Ketones Trace H (Negative) Urine Occult Blood Negative (Negative) Urine Nitrite Positive H (Negative) Urine Bilirubin 1+ H (Negative) Urine Urobilinogen 1.0 (0.2-1.0) Ur Leukocyte Esterase Negative (Negative) Urine RBC 0-5 (0-5) /hpf Urine WBC 10-20 H (0-5) /hpf Ur Squamous Epith Cells 0-5 (0-5) /hpf Urine Bacteria Moderate H (FEW) /hpf Urine Mucus Few (FEW) /hpf SARS-CoV-2 RNA (ANGEL) (NEGATIVE) 03/25/20 03/26/20 03/26/20 Range/Units 17:19 05:08 05:08 WBC 21.04 H (3.98-10.04) K/mm3 RBC 5.44 H (3.98-5.22) M/mm3 Hgb 15.5 D (11.2-15.7) gm/dl Hct 49.3 H (34.1-44.9) % MCV 90.6 (79.4-94.8) fl MCH 28.5 (25.6-32.2) pg MCHC 31.4 L (32.2-35.5) g/dl RDW Std Deviation 47.2 H (36.4-46.3) fL Plt Count 405 H D (182-369) K/mm3 MPV 10.5 (9.4-12.3) fl Neut % (Auto) 85.2 H (34.0-71.1) % Lymph % (Auto) 5.2 L (19.3-51.7) % Rush % (Auto) 9.2 (4.7-12.5) % Eos % (Auto) 0 L (0.7-5.8) Baso % (Auto) 0.1 (0.1-1.2) % Neut # (Auto) 17.93 H (1.56-6.13) K/mm3 Lymph # (Auto) 1.09 L (1.18-3.74) K/mm3 Rush # (Auto) 1.93 H (0.24-0.36) K/mm3 Eos # (Auto) 0.01 L (0.04-0.36) K/mm3 Baso # (Auto) 0.02 (0.01-0.08) K/mm3 Manual Slide Review Abnormal smear Sodium 141 (136-145) mEq/L Potassium 4.3 (3.5-5.1) mEq/L Chloride 106 (98-107) mEq/L Carbon Dioxide 15 L (21-32) mEq/L Anion Gap 24.3 H (5-15) BUN 38 H (7-18) mg/dL Creatinine 1.8 H (0.55-1.02) mg/dL Est Cr Clr Drug Dosing 20.81 mL/min Estimated GFR (MDRD) 27 (>60) mL/min BUN/Creatinine Ratio 21.1 H (14-18) Glucose 232 H (83-115) mg/dL Lactic Acid (0.4-2.0) mmol/L Calcium 10.1 (8.5-10.1) mg/dL Phosphorus 7.0 H (2.6-4.7) mg/dL Magnesium 3.3 H (1.8-2.4) mg/dl Total Bilirubin 0.6 (0.2-1.0) mg/dL AST 32 (15-37) U/L ALT 40 (14-59) U/L Alkaline Phosphatase 187 H (46-116) U/L Troponin I (0.00-0.056) ng/mL C-Reactive Protein 9.3 H* (<1.0) mg/dL Total Protein 6.9 (6.4-8.2) g/dl Albumin 3.0 L (3.4-5.0) g/dl Globulin 3.9 gm/dL Albumin/Globulin Ratio 0.8 L (1-2) Urine Color (Yellow) Urine Appearance (Clear) Urine pH (5.0-8.0) Ur Specific [place] (1.005-1.030) Urine Protein (Negative) Urine Glucose (UA) (Negative) Urine Ketones (Negative) Urine Occult Blood (Negative) Urine Nitrite (Negative) Urine Bilirubin (Negative) Urine Urobilinogen (0.2-1.0) Ur Leukocyte Esterase (Negative) Urine RBC (0-5) /hpf Urine WBC (0-5) /hpf Ur Squamous Epith Cells (0-5) /hpf Urine Bacteria (FEW) /hpf Urine Mucus (FEW) /hpf SARS-CoV-2 RNA (ANGEL) Negative (NEGATIVE) 03/26/20 Range/Units 06:50 WBC (3.98-10.04) K/mm3 RBC (3.98-5.22) M/mm3 Hgb (11.2-15.7) gm/dl Hct (34.1-44.9) % MCV (79.4-94.8) fl MCH (25.6-32.2) pg MCHC (32.2-35.5) g/dl RDW Std Deviation (36.4-46.3) fL Plt Count (182-369) K/mm3 MPV (9.4-12.3) fl Neut % (Auto) (34.0-71.1) % Lymph % (Auto) (19.3-51.7) % Rush % (Auto) (4.7-12.5) % Eos % (Auto) (0.7-5.8) Baso % (Auto) (0.1-1.2) % Neut # (Auto) (1.56-6.13) K/mm3 Lymph # (Auto) (1.18-3.74) K/mm3 Rush # (Auto) (0.24-0.36) K/mm3 Eos # (Auto) (0.04-0.36) K/mm3 Baso # (Auto) (0.01-0.08) K/mm3 Manual Slide Review Sodium (136-145) mEq/L Potassium (3.5-5.1) mEq/L Chloride (98-107) mEq/L Carbon Dioxide (21-32) mEq/L Anion Gap (5-15) BUN (7-18) mg/dL Creatinine (0.55-1.02) mg/dL Est Cr Clr Drug Dosing mL/min Estimated GFR (MDRD) (>60) mL/min BUN/Creatinine Ratio (14-18) Glucose (83-115) mg/dL Lactic Acid 4.2 H* (0.4-2.0) mmol/L Calcium (8.5-10.1) mg/dL Phosphorus (2.6-4.7) mg/dL Magnesium (1.8-2.4) mg/dl Total Bilirubin (0.2-1.0) mg/dL AST (15-37) U/L ALT (14-59) U/L Alkaline Phosphatase (46-116) U/L Troponin I (0.00-0.056) ng/mL C-Reactive Protein (<1.0) mg/dL Total Protein (6.4-8.2) g/dl Albumin (3.4-5.0) g/dl Globulin gm/dL Albumin/Globulin Ratio (1-2) Urine Color (Yellow) Urine Appearance (Clear) Urine pH (5.0-8.0) Ur Specific [place] (1.005-1.030) Urine Protein (Negative) Urine Glucose (UA) (Negative) Urine Ketones (Negative) Urine Occult Blood (Negative) Urine Nitrite (Negative) Urine Bilirubin (Negative) Urine Urobilinogen (0.2-1.0) Ur Leukocyte Esterase (Negative) Urine RBC (0-5) /hpf Urine WBC (0-5) /hpf Ur Squamous Epith Cells (0-5) /hpf Urine Bacteria (FEW) /hpf Urine Mucus (FEW) /hpf SARS-CoV-2 RNA (ANGEL) (NEGATIVE) Med Orders - Current: Current Medications Acetaminophen (Tylenol) 650 mg PO Q4H PRN PRN Reason: Pain (Mild 1-3)/fever Last Admin: 03/26/20 03:09 Dose: 650 mg Documented by: Acetaminophen (Tylenol) 650 mg RECTAL Q4H PRN PRN Reason: Pain (mild 1-3) Clopidogrel Bisulfate (Plavix) 75 mg PO DAILY [facility] Dorzolamide HCl (Trusopt 2% Ophth Soln) 0 ml EYEBOTH BID [facility] Hydromorphone HCl (Dilaudid) 0.5 mg IVPUSH Q2H PRN PRN Reason: Pain (severe 7-10) Last Admin: 03/26/20 07:51 Dose: 0.5 mg Documented by: Metronidazole 500 mg/ Premix 100 mls @ 100 mls/hr IV Q8H [facility] Last Admin: 03/26/20 06:05 Dose: 100 mls/hr Documented by: Sodium Chloride (Normal Saline) 1,000 mls @ 75 mls/hr IV ASDIRECTED [facility] Last Admin: 03/26/20 02:45 Dose: 75 mls/hr Documented by: Sodium Chloride (Normal Saline) 1,000 mls @ 200 mls/hr IV ASDIRECTED [facility] Last Admin: 03/26/20 07:48 Dose: 200 mls/hr Documented by: Latanoprost (Xalatan 0.005% Ophth Soln) 0 ml EYEBOTH DAILY [facility] Ondansetron HCl (Zofran) 4 mg IV Q4H PRN PRN Reason: Nausea/Vomiting Last Admin: 03/25/20 23:23 Dose: 4 mg Documented by: Quetiapine Fumarate (Seroquel) 100 mg PO BID [facility] Last Admin: 03/25/20 22:59 Dose: 100 mg Documented by: Sodium Chloride (Saline Flush) 10 ml FLUSH ASDIRECTED PRN PRN Reason: Keep Vein Open Last Admin: 03/26/20 07:55 Dose: 10 ml Documented by: Sodium Chloride (Saline Flush) 10 ml FLUSH BOLUS [facility] Last Admin: 03/25/20 18:09 Dose: 10 ml Documented by: Discontinued Medications Enoxaparin Sodium (Lovenox) 30 mg SUBCUT DAILY [facility] Hydromorphone HCl (Dilaudid) 0.5 mg IVPUSH ONETIME ONE Stop: 03/25/20 17:09 Last Admin: 03/25/20 17:14 Dose: 0.5 mg Documented by: Hydromorphone HCl (Dilaudid) 0.25 mg IVPUSH ONETIME ONE Stop: 03/25/20 21:15 Last Admin: 03/25/20 21:28 Dose: 0.25 mg Documented by: Sodium Chloride (Normal Saline) 1,000 mls @ 125 mls/hr IV ASDIRECTED [facility] Last Admin: 03/25/20 16:57 Dose: 125 mls/hr Documented by: Ceftriaxone Sodium 1 gm/ (Sodium Chloride) 100 mls @ 200 mls/hr IV ONETIME ONE Stop: 03/25/20 18:19 Last Admin: 03/25/20 18:12 Dose: 200 mls/hr Documented by: Iopamidol (Isovue-300 (61%)) 100 ml IVPUSH ONETIME ONE Stop: 03/25/20 18:08 Last Admin: 03/25/20 18:08 Dose: 100 ml Documented by: Lorazepam (Ativan) 0.5 mg IVPUSH ONETIME ONE Stop: 03/25/20 18:45 Last Admin: 03/25/20 18:51 Dose: 0.5 mg Documented by: Metoclopramide HCl (Reglan) 10 mg IVPUSH ONETIME ONE Stop: 03/25/20 16:33 Last Admin: 03/25/20 16:57 Dose: 10 mg Documented by: Metoclopramide HCl (Reglan) Confirm Administered Dose 10 mg .ROUTE .STK-MED ONE Stop: 03/25/20 16:56 Last Admin: 03/25/20 16:57 Dose: Not Given Documented by: Ondansetron HCl (Zofran) 4 mg IVPUSH ONETIME ONE Stop: 03/25/20 17:40 Last Admin: 03/25/20 18:11 Dose: 4 mg Documented by: - Exam Quality Assessment: Denies: Supplemental Oxygen, DVT Prophylaxis (Patient's Plavix and Lovenox withheld) General: Reports: Alert, Severe Distress. Denies: Oriented, Cooperative HEENT: Reports: Pupils Equal, Pupils Reactive Neck: Reports: Supple, Trachea Midline Lungs: Reports: Clear to Auscultation, Normal Respiratory Effort Cardiovascular: Reports: Regular Rhythm, Tachycardia GI/Abdominal Exam: Normal Bowel Sounds, Distended, Guarding, Tender (Exquisitely tender) (Female) Exam: Deferred Rectal (Female) Exam: Deferred Extremities: Normal Inspection, No Pedal Edema Skin: Reports: Warm, Dry, Intact
[2020-03-26] MEDS: QUEtiapine 100 MG Tab PO SCH (10:08)
--- NOTE | 2020-03-26 11:45 | CR ---
Chest: Portable view of the chest was obtained. Comparison: No prior chest imaging is available. Heart size and mediastinum are normal. Lungs are clear with no acute parenchymal change. No gross bony abnormality is appreciated. Impression: 1. Nothing acute is seen on portable chest x-ray. Diagnostic code #2
--- NOTE | 2020-03-26 11:48 | CT ---
Head CT Technique: Multiple axial sections through the brain were obtained. Intravenous contrast was not utilized. Reconstructed coronal and sagittal images were reviewed. Findings: Ventricles along with basal cisterns and sulci over the convexities are mildly prominent. Low density is noted within the right basal ganglia extending into the murphy radiata and into the right parietal white matter. This is compatible with previous infarct which appears old. Mild diminished density is noted within other portions of the periventricular white matter which is compatible with small vessel ischemic demyelination change. Several old lacunar infarcts are noted within the left basal ganglia. There is no evidence of intracranial hemorrhage. No midline shift or mass-effect is appreciated. Bone window settings were reviewed. Visualized mastoid sinuses and visualized paranasal sinuses show nothing acute. No acute calvarial finding is appreciated. Impression: 1. Senescent change as noted above with evidence of old infarct. 2. Nothing acute is appreciated. Diagnostic code #2 I agree with preliminary report from [facility], finalized on 03/25/20, 7:27 PM NUT CULLER
--- NOTE | 2020-03-26 12:05 | CR ---
Abdomen: Single view of the abdomen was obtained centered to the diaphragm. Nasogastric tube is seen lying within the body of the stomach. No additional abnormality is definitely appreciated. Impression: 1. Tip of nasogastric tube within the body of the stomach. 2. No other gross abnormality is appreciated. Diagnostic code #2 I agree with preliminary report from [facility], finalized on 03/25/20, 8:32 PM CERTIFIED NOVELL ADMINISTRATOR
--- NOTE | 2020-03-26 12:06 | CR ---
Chest: AP portable view of the chest was obtained. Comparison: Prior chest x-ray performed earlier on the same day (5:02 PM). Heart size and mediastinum are normal. Lungs are clear with no acute parenchymal change. Nasogastric tube is seen which crosses the gastroesophageal junction with tip lying within the proximal body of the stomach. Heart size and mediastinum are within normal limits. Impression: 1. Nasogastric tube within the body of the stomach. 2. Nothing acute is otherwise seen. Diagnostic code #3 I agree with preliminary report from [facility], finalized on 03/25/20, 8:24 PM CHIROPRACTIC NEUROLOGIST
--- NOTE | 2020-03-26 12:07 | CT ---
CT abdomen and pelvis Technique: Multiple axial sections were obtained from above the dome of the diaphragm inferiorly through the pubic symphysis. Intravenous contrast was utilized. No oral contrast has been given. Delayed images were also obtained. Reconstructed coronal and sagittal images were also obtained. Comparison: No prior abdominal imaging is available. Findings: Visualized lung bases show nothing acute. Liver contains no focal parenchymal abnormality. Pancreas appears within normal limits. Spleen also appears within normal limits. Small hiatal hernia is noted. Adrenal glands show no focal nodule. Kidneys show symmetric contrast enhancement. Small low-density lesion is noted within the left kidney measuring 6 mm. This is most likely due to a small cyst. Delayed images show no abnormal contrast enhancement of the ureters suggesting possible dehydration. Aorta shows atherosclerotic change without aneurysm. No retroperitoneal adenopathy or mesenteric abnormalities are appreciated. No pelvic mass or adenopathy is seen. Mild diverticulosis is seen within the sigmoid colon. Diffuse increased stool is noted throughout the colon. Bone window settings were reviewed and show scattered disc space narrowing as well as scattered degenerative apophyseal change and mild scoliosis. Impression: 1. Diffuse increased stool throughout the colon. Findings are either due to prominent obstipation but could also represent findings from colitis. 2. Other nonacute findings as noted above. Diagnostic code #3 I agree with preliminary report from [facility], finalized on 03/25/20, 7:43 PM MANAGER STAFFING
== END 2020-03-26 09:47 | DRG 391 ==
LOC: JD.ED 16:19 → JD.MS 19:14
PROVIDERS: ADMIT Family Medicine; ATTEND Family Medicine
DX: K52.9 Noninfective gastroenteritis and colitis, unspecified (principal); K55.069 Acute infarction of intestine, part and extent unspecified; R11.2 Nausea with vomiting, unspecified; N39.0 Urinary tract infection, site not specified; Z79.02 Long term (current) use of antithrombotics/antiplatelets; Z79.899 Other long term (current) drug therapy; Z87.891 Personal history of nicotine dependence; N17.9 Acute kidney failure, unspecified; E87.2 Acidosis; I69.354 Hemiplegia and hemiparesis following cerebral infarction affecting left non-dominant side; Z79.01 Long term (current) use of anticoagulants; Z20.822 Contact with and (suspected) exposure to COVID-19
CPT/HCPCS: 36415; 70450; 71045 ×2; 74018; 74177; 80053; 81001; 84484; 85025; 86140; 87086; 93005; J0696; J1170; J2060; J2405; J2765; J7030; J7050; Q9967; U0002; 43752; 83605; 83735; 84100; 87040; 93010; 94760; 96365; 96375; 99285; 99285-25; A9270-GY; J3490